=== PATIENT | female | born 1950 | race Caucasian/White ===

== ENCOUNTER 2020-01-17 11:16 | Emergency (ER) | payer SELFPAY ==
[2020-01-17] MEDS ORDERED: ADENOSINE 6 MG/2 ML VIAL IVP STA (11:32)
--- NOTE | 2020-01-17 11:32 | ED Physician Documentation ---
PD HPI CHEST PAIN - Stated complaint Stated Complaint: FAST HEART RATE - Chief complaint Chief Complaint: Cardiac - History obtained from History obtained from: Patient - History of Present Illness Timing - onset: How many hours ago (2 hours ago at 9:22 this morning, onset at mild activity just around the house. Feeling of heart suddenly going fast, with lightheaded. No chest pain per se.), Today Timing - onset during: Light activity Timing - duration: Hours (2) Timing - details: Abrupt onset, Still present Quality: Tightness, Aching. No: Pressure, Sharp Location: Substernal, Left chest Radiation: No: Jaw, Neck, Back Improved by: Rest, Oxygen Worsened by: No: Inspiration Associated symptoms: Diaphoresis, Nausea, Feeling faint / dizzy, General Weakness, Palpitations. No: Shortness of air Similar symptoms before: No diagnosis (has had similar feeling episodes over the past month or two, but lasting just a minute up to 20 minutes, then would return to normal. Has had 4-5 episodes of this, all self limited.) Recently seen: Not recently seen Review of Systems Constitutional: denies: Fever, Chills, Myalgias Nose: denies: Rhinorrhea / runny nose, Congestion Throat: denies: Sore throat Cardiac: reports: Palpitations (just these discrete episodes.). denies: Chest pain / pressure, Pedal edema, Calf pain Respiratory: denies: Cough PD PAST MEDICAL HISTORY - Past Medical History Cardiovascular: None Respiratory: None Neuro: None Endocrine/Autoimmune: None - Present Medications Home Medications: Ambulatory Orders Medication Instructions Recorded Confirmed Potassium Chloride 10 meq PO DAILY #15 tablet.er 01/17/20 - Allergies Allergies/Adverse Reactions: Allergies Allergy/AdvReac Type Severity Reaction Status Date / Time codeine Allergy Unknown Verified 01/17/20 11:25 - Social History Does the pt smoke?: No Does the pt drink ETOH?: No ETOH Use: Other (she says she will have a drink once a year at holidays with family. ) Does the pt have substance abuse?: No - Family History Family history: denies: CAD, Sudden PD ED PE NORMAL - Vitals Vital signs reviewed: Yes - General General: Alert and oriented X 3, No acute distress, Well developed/nourished - Neck Neck: Supple, no meningeal sign, No adenopathy - Cardiac Cardiac: No murmur. No: RRR (very fast rate in 190s, without murmur nor rub. ) - Respiratory Respiratory: Clear bilaterally - Abdomen Abdomen: Soft, Non tender - Derm Derm: Normal color, Warm and dry, No rash - Extremities Extremities: No tenderness to palpate, Normal ROM s pain, No edema, No calf tenderness / cord - Neuro Neuro: Alert and oriented X 3, No motor deficit, Normal speech Results - Vitals Vitals: Vital Signs - 24 hr 01/17/20 01/17/20 01/17/20 11:22 11:30 11:38 Temperature 36.4 C L Heart Rate 198 H 197 H 100 Respiratory 16 19 20 Rate Blood Pressure 92/64 103/84 H 122/88 H O2 Saturation 99 98 99 01/17/20 01/17/20 12:00 12:46 Temperature Heart Rate 99 86 Respiratory 18 16 Rate Blood Pressure 123/85 H 114/91 H O2 Saturation 97 100 Oxygen O2 Source Room air - EKG (time done) 11:23 Rate: Rate (enter#) (194) Rhythm: SVT Intervals: Normal CO, QRS normal. No: Wide QRS QRS: Normal Ischemia: Normal ST segments, ST depression (mild diffusely, presume rate related ischemia. ). No: ST elevation c/w ischemia 11:43 Rate: Rate (enter#) (93) Rhythm: NSR [place]: Normal Intervals: Normal CO QRS: Normal Ischemia: Normal ST segments. No: ST elevation c/w ischemia, ST depression Compare to prior EKG: Changed from prior EKG (now NSR and not ST depressions. ) - Labs Labs: Laboratory Tests 01/17/20 01/17/20 01/17/20 11:30 11:30 11:30 WBC 6.5 RBC 4.57 Hgb 14.4 Hct 42.9 MCV 93.9 MCH 31.5 H MCHC 33.6 RDW 13.3 Plt Count 214 MPV 10.1 Neut # (Auto) 2.7 Lymph # (Auto) 3.2 [place] # (Auto) 0.5 Eos # (Auto) 0.1 Baso # (Auto) 0.1 Absolute Nucleated RBC 0.00 Nucleated RBC % 0.0 Sodium 135 Potassium 3.7 Chloride 98 L Carbon Dioxide 27 Anion Gap 10.0 BUN 18 Creatinine 0.8 Estimated GFR (MDRD) 71 L Glucose 116 H Calcium 9.2 Magnesium 2.3 Total Bilirubin 0.8 AST 30 ALT 24 Alkaline Phosphatase 68 B-Natriuretic Peptide Total Protein 9.0 H Albumin 4.2 Globulin 4.8 H Albumin/Globulin Ratio 0.9 L Lipase 59 H TSH 1.24 01/17/20 11:30 WBC RBC Hgb Hct MCV MCH MCHC RDW Plt Count MPV Neut # (Auto) Lymph # (Auto) [place] # (Auto) Eos # (Auto) Baso # (Auto) Absolute Nucleated RBC Nucleated RBC % Sodium Potassium Chloride Carbon Dioxide Anion Gap BUN Creatinine Estimated GFR (MDRD) Glucose Calcium Magnesium Total Bilirubin AST ALT Alkaline Phosphatase B-Natriuretic Peptide 38 Total Protein Albumin Globulin Albumin/Globulin Ratio Lipase TSH - Rads (name of study) chest xray Radiology: Prelim report reviewed (normal heart size; no acute process. ), See rad report PD MEDICAL DECISION MAKING - ED course Complexity details: re-evaluated patient (given Adenosine 6 mg IV with conversion to NSR. Appears then to be SVT.), considered differential (regular interval of complexes at 190s, but fast enough to have difficultly distingui shing SVT from rapid atrial fib. Can try Adenosine and see the change in rhythm. ), d/w patient Departure - Departure Disposition: 01 Home, Self Care Clinical Impression: Heart rate fast, SVT (supraventricular tachycardia) Condition: Stable Record reviewed to determine appropriate education?: Yes Instructions: ED Tachycardia Pat PSVT, ED Valsalva Maneuver Follow-Up: Jonah Bonilla MD [Provider Admit Priv/Credential] - Prescriptions: Potassium Chloride 10 meq PO DAILY #15 tablet.er Comments: Stay well-hydrated and add a potassium supplement for the next week or 2. Your potassium level was in the normal range but on the low end of normal. Your fast heart rate rhythm was called SVT (supraventricular tachycardia). It did not appear to be atrial fibrillation. If you get recurrent episodes, try the Valsalva maneuvers we discussed. If you have a prolonged episode not resolved with those, you can return to the ER at any time. Otherwise if you have frequent or prolonged episodes often enough then there can be some daily medications direct try to prevent the episodes. At this point is not infrequent enough to just try the above interventions and see if it would just stop it when it happens. Discharge Date/Time: 01/17/20 12:56
[2020-01-17 11:41] LABS: BASOPHILS # (AUTO) 0.1 10^3/uL (0.0-0.1); BASOPHILS % (AUTO) 0.8 %; EOSINOPHILS # (AUTO) 0.1 10^3/uL (0.0-0.7); EOSINOPHILS % (AUTO) 1.4 %; HGB - HEMOGLOBIN 14.4 g/dL (12.0-16.0); LYMPHOCYTES # (AUTO) 3.2 10^3/uL (1.5-3.5); LYMPHOCYTES % (AUTO) 49.3 %; MEAN CORPUSCULAR HEMOGLOBIN 31.5 pg (27.0-31.0); MEAN CORPUSCULAR HGB CONC 33.6 g/dL (32.0-36.0); MEAN CORPUSCULAR VOLUME 93.9 fL (81.0-99.0); MEAN PLATELET VOLUME 10.1 fL (7.9-10.8); MONOCYTES # (AUTO) 0.5 10^3/uL (0.0-1.0); MONOCYTES % (AUTO) 7.7 %; NEUTROPHILS # (AUTO) 2.7 10^3/uL (1.5-6.6); NEUTROPHILS % (AUTO) 40.6 %; PLT - PLATELET COUNT 214 10^3/uL (130-450); RED BLOOD COUNT 4.57 10^6/uL (4.20-5.40); RED CELL DISTRIBUTION WIDTH 13.3 % (12.0-15.0); WHITE BLOOD COUNT 6.5 x10^3/uL (4.8-10.8)
[2020-01-17 11:54] LABS: ALBUMIN 4.2 g/dL (3.2-5.5); ALBUMIN/GLOBULIN RATIO 0.9 (1.0-2.2); BILIRUBIN,TOTAL 0.8 mg/dL (0.2-1.0); CALCIUM 9.2 mg/dL (8.5-10.3); CREATININE 0.8 mg/dL (0.4-1.0); MAGNESIUM 2.3 mg/dL (1.7-2.8)
--- NOTE | 2020-01-17 12:01 | XRAY Report ---
Reason: chest pain Procedure Date: 01/17/2020 Accession Number: [id number] / [id number] Procedure: XR - Chest 1 View X-Ray CPT Code: 23334 Final Report FULL RESULT: EXAM: CHEST RADIOGRAPHY EXAM DATE: 01/17/2020 11:49 AM. CLINICAL HISTORY: Chest pain. COMPARISON: None. TECHNIQUE: 1 view. FINDINGS: Lungs/Pleura: Minimal bibasilar atelectatic changes without gross consolidation. Mediastinum: Within exam limitations, the cardiomediastinal contour is normal. Other: None. IMPRESSION: Minimal bibasilar atelectatic changes, less likely infiltrate without gross consolidation. [facility]
[2020-01-17] MEDS ORDERED: POTASSIUM CHLORIDE 20 MEQ TABLET PO STA (12:14)
[2020-01-17 12:47] VITALS: BP 114/91
== END 2020-01-17 12:56 | disposition home or self-care (01) ==
LOC: ED 11:16
DX: I47.1 Supraventricular tachycardia (principal)
CPT/HCPCS: 36415; 71045; 83690; 83735; 83880; 93005; 96374; 99284; A9270; J0153; 80053; 84443; 85025